=== PATIENT | female | born 2000 | race American Indian/Alaskan Native ===

== ENCOUNTER 2019-01-09 11:44 | Emergency (ER) | payer SELFPAY ==
[2019-01-09 11:59] VITALS: BP 123/65
--- NOTE | 2019-01-09 12:01 | Event Note ---
ED Screening Note Date of service: 01/09/19 Time: 11:55 ED Screening Note: cc of lower mid back pain x 2 weeks and blood in stool yesterday x 1 episode cc of vulva lesion and pain This initial assessment/diagnostic orders/clinical plan/treatment(s) is/are subject to change based on patients health status, clinical progression and re- assessment by fellow clinical providers in the ED. Further treatment and workup at subsequent clinical providers discretion. Patient/guardian urged not to elope from the ED as their condition may be serious if not clinically assessed and managed. Initial orders include: ua ,upt
[2019-01-09 12:25] LABS: Bacteria,Urine 1+ /HPF (Negative); Bilirubin,Urine NEG (Negative); Blood,Urine NEG (Negative); Color,Urine Yellow (Yellow); Mucus,Urine 1+ /HPF; Protein,Urine <15 mg/dL mg/dL (Negative); Urobilinogen,Urine < 2.0 mg/dL (<2.0)
[2019-01-09 12:26] LABS: HCG Qualitative,Urine Negative (Negative)
[2019-01-09] MEDS ORDERED: IBUPROFEN 800 MG TAB PO ONE (12:26)
[2019-01-09] MEDS ORDERED: LIDOCAINE-MPF (1%) 10 MG/1 ML VIAL 5 ML INFILTRATI ONE (12:26)
--- NOTE | 2019-01-09 12:26 | Emergency Department Report ---
ED Dysuria HPI - HPI Chief Complaint: Back Pain/Injury Stated Complaint: NAUSEA/DIZZY/BACK PAIN Time Seen by Provider: 01/09/19 11:55 Duration: 5 Days Location of Discomfort: Flank Severity: Mild Symptoms: Dysuria: Yes, Frequency: Yes, Suprapubic Pain: No, Flank Pain: No, Fever: No, Hematuria: No, Abdominal Pain: No, Previous UTI's: Yes Other History: 18 YO FEMALE COME TO ER WITH BACK PAIN AND BURNING WITH URINATION. PTS BF HAS BEEN OUT OF TOWN FOR 6 M AND SHES HAD FREQUENT SEX. SHE REPORTS SWOLLEN GLAND P SEX THIS AM. NO FEVER OR CHILLS. NO VAG BLEED OR DISCHARGE. ONLY 1 SEX PARTNER. BCP IMPLANT IN HER L ARM. ED Review of Systems ROS: Stated complaint: NAUSEA/DIZZY/BACK PAIN Other details as noted in HPI Comment: All other systems reviewed and negative ED Past Medical Hx - Past Medical History Previous Medical History?: No - Surgical History Past Surgical History?: No Additional Surgical History: [id number]; SURGICAL AB 6M AGO IN [facility] - Family History Family history: no significant - Social History Smoking Status: Current Every Day Smoker Substance Use Type: None - Medications Home Medications: Home Medications Medication Instructions Recorded Confirmed Last Taken Type Sulfamethoxazole/Trimethoprim 1 each PO BID #10 tablet 01/09/19 Unknown Rx [Bactrim DS TAB] Dysuria Exam - Exam General: Vital signs noted. No distress. Alert and acting appropriately. PT SHOWED ME PIC OF HER VAG GLAND SWELLING THIS AM ON EXAM NOW THE GLAND HAS RETURNED TO NORMAL SIZE NO ABSCESS OR LESIONS ON EXAM Exam: Yes Moist Mucous Membranes, No CVA Tenderness, No Abdominal Tenderness, No Rigidity or Guarding Labs: Lab Results 01/09/19 Range/Units 12:11 Urine Bilirubin Neg (Negative) Urine RBC (Auto) 8.0 (0.0-6.0) /HPF U Epithel Cells (Auto) 3.0 (0-13.0) /HPF ED Course Vital Signs 01/09/19 11:55 Temperature 98.1 F Pulse Rate 70 Respiratory 20 Rate Blood Pressure 123/65 [Right] O2 Sat by Pulse 99 Oximetry ED Medical Decision Making - Medical Decision Making Labs 01/09/19 12:11 Urine Color Yellow Urine Turbidity Clear Urine pH 5.0 Ur Specific [place] 1.024 Urine Protein <15 mg/dl Urine Glucose (UA) Neg Urine Ketones Neg Urine Blood Neg Urine Nitrite Neg Urine Bilirubin Neg Urine Urobilinogen < 2.0 Ur Leukocyte Esterase Mod Urine WBC (Auto) 26.0 H Urine RBC (Auto) 8.0 U Epithel Cells (Auto) 3.0 Urine Bacteria (Auto) 1+ Urine Mucus 1+ Urine HCG, Qual Negative Vital Signs 01/09/19 11:55 Temperature 98.1 F Pulse Rate 70 Respiratory 20 Rate Blood Pressure 123/65 [Right] O2 Sat by Pulse 99 Oximetry UA NOTED 1 SEXUAL PARTNER; FREQ SEX NO VAG DC OR BLEEDING IMPLANT FOR BC NO FEVER TAKING PO AMBULATORY MEDICATED IN ER AND DC HOME WITH DC PLAN OF CARE AND OBGYN FOLLOW UP. - Differential Diagnosis SIMPLE UTI Critical care attestation.: If time is entered above; I have spent that time in minutes in the direct care of this critically ill patient, excluding procedure time. ED Disposition Clinical Impression: UTI (urinary tract infection) Disposition: DC-01 TO HOME OR SELFCARE Is pt being admited?: No Does the pt Need Aspirin: No Condition: Stable Instructions: Urinary Tract Infection in Women (ED) Additional Instructions: HYDRATE WELL WITH WATER MOTRIN OR TYLENOL FOR PAIN MED ORDERED TODAY FOLLOW UP WITH OBGYN WE DISCUSSED REFERRAL BELOW Prescriptions: Sulfamethoxazole/Trimethoprim [Bactrim DS TAB] 1 each PO BID #10 tablet Referrals: ONEL AHUMADA MD [Staff Physician] - 3-5 Days Time of Disposition: 12:32
== END 2019-01-09 13:08 | disposition home or self-care (01) ==
LOC: ED 11:44
DX: N39.0 Urinary tract infection, site not specified (principal)
CPT/HCPCS: 81001; 81025; 87086; 96372; 99283; J0696

== ENCOUNTER 2019-02-20 23:06 | Emergency (ER) | payer SELFPAY | END 2019-02-21 00:45 | disposition left against medical advice (07) | LOC: ED 23:06 | DX: Z53.21 Procedure and treatment not carried out due to patient leaving prior to being seen by health care provider (principal) ==

== ENCOUNTER 2019-02-21 10:10 | Emergency (ER) | payer SELFPAY ==
[2019-02-21 11:11] LABS: Basophils % (Auto) 0.5 % (0.0-1.8); Eosinophils # (Auto) 0.1 K/mm3 (0.0-0.4); Hematocrit 42.1 % (30.3-42.9); Hemoglobin 14.9 gm/dl (10.1-14.3); Lymphocytes # (Auto) 1.4 K/mm3 (1.2-5.4); Lymphocytes % (Auto) 23.7 % (13.4-35.0); Mean Corpuscular HGB Conc 35 % (30-34); Mean Corpuscular Volume 86 fl (79-97); Monocytes # (Auto) 0.6 K/mm3 (0.0-0.8); Platelet Count 195 K/mm3 (140-440); Red Blood Count 4.89 M/mm3 (3.65-5.03); Red Cell Distribution Width 12.8 % (13.2-15.2)
[2019-02-21 11:21] LABS: INR 1.08 (0.87-1.13)
[2019-02-21 11:22] LABS: Partial Thromboplastin Time 33.4 Sec. (24.2-36.6)
[2019-02-21 11:28] LABS: Alanine Aminotransferase 18 units/L (7-56); Albumin 4.5 g/dL (3.9-5); BUN/Creatinine Ratio 18; Blood Urea Nitrogen 11 mg/dL (7-17); Calcium 9.6 mg/dL (8.4-10.2); Hemolysis Index 10
[2019-02-21 15:19] VITALS: BP 126/56
== END 2019-02-21 15:17 | disposition home or self-care (01) ==
LOC: ED 10:10
DX: R11.0 Nausea (principal); R42 Dizziness and giddiness
CPT/HCPCS: 36415; 80053; 84703; 85025; 85610; 85730